=== PATIENT | female | born 1950 | race Caucasian/White ===

== ENCOUNTER → 2017-11-03 | Day surgery (SDC) | payer MEDICARE, OTHER ==
[2017-11-01 10:09] VITALS: BMI 22.6
[~2017-11-03] MED LIST: BALANCED SALT IRRIG SOLN COMB2 15 ML IRRIG.SOLN IRRIGATION ONE; DUOVISC KIT (GREEN BOX) INTRAOCULA ONE; EPINEPHrine (PF) 0.3 ML in BALANCED SALT IRRIG SOLN COMB2 500 ML IRRIGATION ONE; LACTATED RINGERS 1,000 ML IV SCH; LIDOCAINE 1% (PF) 10MG/ML VIAL MISCELLANE ONE; MIDAZOLAM 2 MG/2 ML VIAL IV PRN; MIDAZOLAM 2 MG/2 ML VIAL ONE; TETRACAINE 0.5% OPHTH (PF) DROPS 4 ML BTL OP ONE; fentaNYL (PF) 50 MCG/ML 2 ML AMP ONE
[2017-11-03 10:28] VITALS: RESP 16; TEMP 97.7
[2017-11-03] MEDS: CYCLOPENTOLATE 1% OPHTH SOLN 2 ML BTL OP ONE ×3 (10:31→10:43)
[2017-11-03] MEDS: PHENYLEPHRINE 2.5% OPHTH DRP 2ML OP NR ×3 (10:34→10:46)
[2017-11-03] MEDS: TIMOLOL 0.5% OPHTH DROPS 5 ML BTL OP ONE ×2 (10:55→11:06)
[2017-11-03] MEDS: MOXIFLOXACIN HCL 0.5% DROPS 3 ML BTL OP ONE ×2 (10:56→11:06)
--- NOTE | 2017-11-03 11:22 | P.OP ---
Date of Procedure: 11/03/17 Preoperative Diagnosis: NS & CS & PSC Postoperative Diagnosis: same Procedure(s) Performed: PIOL OD Implants: PCB00 20.00 Anesthesia: MAC Surgeon: Chano Carvalho Estimated Blood Loss (ml): 0 Pathology: none sent Condition: stable Disposition: same day Indications for Procedure: blurry vision Operative Findings: No complications
[2017-11-03 11:27] VITALS: BP 144/79; PULSE 60
--- NOTE | 2017-11-03 12:46 | OP ---
OPERATIVE REPORT DATE OF SURGERY: 11/03/2017. SURGEON: Chano Carvalho MD PAPER GRADER: PREOPERATIVE DIAGNOSIS: Nuclear sclerosis, cortical sclerosis, posterior subcapsular cataract. POSTOPERATIVE DIAGNOSIS: Nuclear sclerosis, cortical sclerosis, posterior subcapsular cataract. OPERATION: Phacoemulsification of cataract and intraocular lens implant of the right eye. ESTIMATED BLOOD LOSS: Zero. SPECIMEN TAKEN: None. NARRATIVE: After obtaining the appropriate consent, the patient was brought to the operating room where the patient was placed under cardiac monitoring and prepped and draped in the usual sterile manner. At the 11 o'clock position a 15 degree super sharp blade was used to create a paracentesis followed by instillation of 1% Xylocaine MPF 50:50 mix with BSS into the anterior chamber. This was followed by viscoelastic Duovisc to stabilize the anterior chamber. At the 9 o'clock position a self-sealing corneal flap incision was created using 2.8 mm jose manuel keratome. A cystotome was used to initiate a continuous tear capsulorrhexis which was completed with the Utrata forceps. A Binkhorst cannula was used to hydrodissect the lens nucleus followed by hydrodelineation. Phacoemulsification of the lens was performed utilizing phaco chop in 22.24 seconds at 13% power. The remaining cortical material was removed using the irrigation aspiration mode followed by additional 1% Xylocaine MPF into the anterior chamber followed by viscoelastic to stabilize the capsular bag. An EVELYNE PCB00 20.0 diopters posterior chamber lens was placed into the capsular bag without difficulty. The remaining viscoelastic material was removed from the anterior chamber with the irrigation/aspiration. Balanced salt solution was used to normalize the intraocular pressure. The incision was checked for watertight integrity. The patient then received two drops of 0.5% timolol followed by two drops Vigamox, was lightly patched and shielded in the usual manner. There were no complications from the procedure. The patient tolerated the procedure well and was returned to recovery in good condition. MMODL / IJN: [id number] /
== END | disposition home or self-care (01) ==
LOC: OR 08:58
PROVIDERS: ATTEND Ophthalmology
DX: H25.13 Age-related nuclear cataract, bilateral (principal); H25.013 Cortical age-related cataract, bilateral; H25.043 Posterior subcapsular polar age-related cataract, bilateral; H52.13 Myopia, bilateral; H52.4 Presbyopia; I10 Essential (primary) hypertension; E78.00 Pure hypercholesterolemia, unspecified; F17.210 Nicotine dependence, cigarettes, uncomplicated; E78.5 Hyperlipidemia, unspecified; Z79.899 Other long term (current) drug therapy; Z91.041 Radiographic dye allergy status; Z88.8 Allergy status to other drugs, medicaments and biological substances
CPT/HCPCS: 66984; C1780; J2250; J0171; J3010; J2001

== ENCOUNTER → 2018-04-27 | Day surgery (SDC) | payer MEDICARE, OTHER ==
[2018-04-20 10:55] VITALS: BMI 22.4
[~2018-04-27] MED LIST changes: -DUOVISC KIT (GREEN BOX) INTRAOCULA ONE; +HYALURONATE SODIUM INTRAOCULAR 1 EACH SYRINGE (12MG/ML) INTRAOCULA ONE; +HYDROmorphone 1 MG/ML 1 ML SYRINGE IVP PRN; -LIDOCAINE 1% (PF) 10MG/ML VIAL MISCELLANE ONE; +LIDOCAINE 1% (PF) 10MG/ML VIAL SQ ONE; +LIDOCAINE 1% 20 ML VIAL (10MG/ML) FOR IV START INTRADERMA ONE; -MIDAZOLAM 2 MG/2 ML VIAL IV PRN; +MOXIFLOXACIN HCL 0.5% DROPS 3 ML BTL OP ONE; +TIMOLOL 0.5% OPHTH DROPS 5 ML BTL OP ONE
[2018-04-27] MEDS: CYCLOPENTOLATE 1% OPHTH SOLN 2 ML BTL OP ONE ×3 (07:15→07:30)
[2018-04-27] MEDS: PHENYLEPHRINE 2.5% OPHTH DRP 2ML OP NR ×3 (07:18→07:33)
[2018-04-27 07:21] VITALS: TEMP 98.1
--- NOTE | 2018-04-27 08:43 | P.OP ---
Date of Procedure: 04/27/18 Preoperative Diagnosis: NS & CS Postoperative Diagnosis: same Procedure(s) Performed: PIOL, OS Implants: PCB00 20.50 Anesthesia: MAC Surgeon: Chano Carvalho Pathology: none sent Condition: stable Disposition: same day Indications for Procedure: blurry vision Operative Findings: no complications
[2018-04-27 08:51] VITALS: RESP 20
[2018-04-27 09:11] VITALS: BP 151/72; PULSE 54
--- NOTE | 2018-04-27 16:08 | OP ---
OPERATIVE REPORT DATE OF SERVICE: 04/27/2018 MERCHANDISE FOR RESALE PURCHASING AGENT:: PREOPERATIVE DIAGNOSIS:: Nuclear sclerosis. Cortical sclerosis. POSTOPERATIVE DIAGNOSIS:: Nuclear sclerosis. Cortical sclerosis. OPERATION:: Clear cornea phacoemulsification of cataract left OS eye. ESTIMATED BLOOD LOSS:: Zero. SPECIMEN TAKEN:: None. NARRATIVE:: After obtaining the appropriate consent, the patient was brought to the Operating Room where the patient was placed under cardiac monitoring and prepped and draped in the usual sterile manner. At the 5 o'clock position a 15 degree super sharp blade was used to create a paracentesis followed by instillation of 1% Xylocaine MPF 50:50 mix with BSS into the anterior chamber. This was followed by Amvisc to stabilize the anterior chamber. At the 3 o'clock OS position a self-sealing corneal flap incision was created using 2.8 mm jose manuel keratome. A cystatome was used to initiate a continuous tear capsulorrhexis which was completed with the Utrata forceps. A Binkhorst cannula was used to hydrodissect the lens nucleus followed by hydrodelineation. Phacoemulsification of the lens was performed utilizing phacochop in 19.28 seconds at 12% power. The remaining cortical material was removed using the irrigation aspiration mode followed by additional 1% Xylocaine MPF into the anterior chamber followed by viscoelastic to stabilize the capsular bag. An EVELYNE PZB 00 20.5 diopter posterior chamber lens was placed into the capsular bag without difficulty. The remaining viscoelastic material was removed from the anterior chamber with the irrigation/aspiration. Balanced salt solution was used to normalize the intraocular pressure. The incision was checked for watertight integrity. The patient then received two drops of 0.5% timolol followed by two drops Vigamox, was lightly patched and shielded in the usual manner. There were no complications from the procedure. The patient tolerated the procedure well and was returned to recovery in good condition. MMODL / IJN: [id number] /
== END | disposition home or self-care (01) ==
LOC: OR 07:01
PROVIDERS: ATTEND Ophthalmology
DX: H25.12 Age-related nuclear cataract, left eye (principal); I10 Essential (primary) hypertension; F17.210 Nicotine dependence, cigarettes, uncomplicated; H25.012 Cortical age-related cataract, left eye; H25.042 Posterior subcapsular polar age-related cataract, left eye; H52.13 Myopia, bilateral; H52.4 Presbyopia; E78.00 Pure hypercholesterolemia, unspecified; E78.5 Hyperlipidemia, unspecified; Z98.41 Cataract extraction status, right eye; Z96.1 Presence of intraocular lens; Z79.899 Other long term (current) drug therapy; F41.9 Anxiety disorder, unspecified; J44.9 Chronic obstructive pulmonary disease, unspecified
CPT/HCPCS: 66984; C1780; J2250; J0171; J3010; J2001

== ENCOUNTER → 2021-01-10 | Outpatient (CLI) | payer MEDICARE, OTHER ==
--- NOTE | 2021-01-14 10:36 | PE ---
Nuclear medicine PET/CT HISTORY: R 91.1, right lung nodule, initial Patient received 10.4 mCi F-18 FDG intravenously, delayed scanning was performed from the skull base to the mid thighs. Localization and attenuation correction CT scan was performed., Correlation [facility] 12/06/2020 Chest and neck: the right upper lobe lung nodule seen on prior CT is again noted and measures approxi mately 2.9 cm in size and shows associated hypermetabolic uptake, SUV 8.1. Spiculations extend to the pleural margin. Additional nodule in the right middle lobe is again seen but does not show associate d uptake. Subpleural inflammatory changes suspected in the left upper lobe, axial image #70, SUV is o nly 1.4. There is no pleural or pericardial effusion. Evidence of old granulomatous disease again see n, calcified nodule in the left upper lobe. There is no mediastinal uptake, retrocaval pretracheal no de is enlarged, there is prevascular node as present on prior. There are coronary artery calcificatio ns. Hiatal hernia is present. There is no cervical or supraclavicular adenopathy. Cerebral vascular a ccident change suspected in the distribution of the right middle cerebral artery, there are coils pre sent at the region of the [place] noted incidentally. ABDOMEN: There is no adrenal mass. The spleen shows associated calcifications consistent with old gra nulomatous disease. There is no retroperitoneal adenopathy or ascites. No liver mass. No suspicious u ptake. Right ovarian cyst is suspected measuring 2.7 cm, uterus is absent. Osseous structures show degenerative disc change in the lumbar spine. There are facet arthropathy rogelio nges in the lower lumbar spine with some associated uptake. No suspicious uptake is evident. Uptake a ssociated with some posterior right-sided rib fractures significant for pseudarthrosis. IMPRESSION: Enlarging right upper lobe lung mass, findings suggestive bronchogenic carcinoma. Old gra nulomatous disease.
== END | disposition home or self-care (01) ==
LOC: RADPETMAIN 12:20
PROVIDERS: ATTEND Internal Medicine
DX: R91.8 Other nonspecific abnormal finding of lung field (principal)
CPT/HCPCS: 78815; A9552

== ENCOUNTER 2021-02-12 10:24 | Day surgery (SDC) | payer MEDICARE, OTHER ==
[2021-02-10 11:31] VITALS: BMI 20.1
[~2021-02-12 10:24] MED LIST changes: +ALBUTEROL NEB (CONC) 2.5 MG/0.5 ML INHALATION ONE; -BALANCED SALT IRRIG SOLN COMB2 15 ML IRRIG.SOLN IRRIGATION ONE; -EPINEPHrine (PF) 0.3 ML in BALANCED SALT IRRIG SOLN COMB2 500 ML IRRIGATION ONE; -HYALURONATE SODIUM INTRAOCULAR 1 EACH SYRINGE (12MG/ML) INTRAOCULA ONE; -HYDROmorphone 1 MG/ML 1 ML SYRINGE IVP PRN; -LACTATED RINGERS 1,000 ML IV SCH; +LIDOCAINE 1% (10MG/ML) FOR IV START INTRADERMA PRN; -LIDOCAINE 1% (PF) 10MG/ML VIAL SQ ONE; -LIDOCAINE 1% 20 ML VIAL (10MG/ML) FOR IV START INTRADERMA ONE; +LIDOCAINE 2% (PF) 20 MG/ML 5 ML VIAL INHALATION ONE; -MIDAZOLAM 2 MG/2 ML VIAL ONE; -MOXIFLOXACIN HCL 0.5% DROPS 3 ML BTL OP ONE; +SODIUM CHLORIDE 0.9% 1,000 ML IV SCH; -TETRACAINE 0.5% OPHTH (PF) DROPS 4 ML BTL OP ONE; -TIMOLOL 0.5% OPHTH DROPS 5 ML BTL OP ONE; -fentaNYL (PF) 50 MCG/ML 2 ML AMP ONE
[2021-02-12] MEDS: LACTATED RINGERS 1,000 ML IV SCH ×2 (10:58→11:10)
[2021-02-12] MEDS: LIDOCAINE VISCOUS 300 MG/15 ML CUP MUCOUS MEM ONE ×2 (11:13→11:26)
--- NOTE | 2021-02-12 12:00 | CT ---
EXAMINATION TYPE: CT Chest soniya [facility] Protocol DATE OF EXAM: 02/12/2021 COMPARISON: Outside chest CT December 06, 2010. PET CT January 10, 2011. HISTORY: Pulmonary Nodules/Bronchial Navigation. Abnormal CT and PET/CT. CT DLP: 525.1 mGycm Automated exposure control for dose reduction was used. FINDINGS: Exam is for bronchoscopy planning and not for diagnostic purposes. Moderate emphysematous changes gre atest in the upper lungs is redemonstrated. There is persistent 2.0 cm spiculated nodule correspondin g to the hypermetabolic lesion on recent PET/CT in the posterior inferior right upper lobe. Benign ca lcified subcentimeter nodules are granulomas are seen just superior and medial to this. Persistent mo derate three-vessel coronary artery calcification. Persistent exaggerated kyphosis with moderate mult ilevel spurring in the spine and a shaped scoliotic curvature. IMPRESSION: As above.
[2021-02-12] MEDS ORDERED: SUCCINYLCHOLINE CHLORIDE 100 MG/5 ML SYR IV ONE (12:52)
[2021-02-12] MEDS ORDERED: PROPOFOL 10 MG/ML 20 ML VIAL IV ONE (12:52)
[2021-02-12] MEDS ORDERED: MIDAZOLAM 2 MG/2 ML VIAL ONE (12:52)
[2021-02-12] MEDS ORDERED: LIDOCAINE 1% INJ 10MG/ML (20 ML MDV) ONE (12:52)
[2021-02-12] MEDS ORDERED: fentaNYL (PF) 50 MCG/ML 2 ML AMP ONE (12:52)
[2021-02-12 13:52] VITALS: TEMP 97
--- NOTE | 2021-02-12 13:52 | P.PCN ---
Date of Procedure: 02/12/21 Preoperative Diagnosis: RLL mass, paratracheal adenopathy Postoperative Diagnosis: RLL mass, paratracheal adenopathy Procedure(s) Performed: 1 Navigation bronchoscopy 2 Navigationall guided TBBX of RUL mass 3 Navigationall guided Brushing of RUL mass 4 Navigationall guided TBNA of RUL mass (22 gauge) 5 Navigationall guided TBNA of paratracheal LN (21 gauge) Anesthesia: GETA Surgeon: Nicole Hoskins Supervising Chef #1: Nay Lopez Pathology: other Condition: stable Disposition: same day Operative Findings: 70-year-old male patient with a right upper lobe mass, enlarging, spiculated, measuring 2.9 cm in size in addition to some mediastinal lymphadenopathy largest in the paratracheal area measuring around 1 cm in size. PET scan was done on 01/10/2021 showed metabolic activity with an update an SUV of 8.1. Patient was brought into the hospital for a navigational bronchoscopy and biopsy. The patient underwent a CAT scan of the chest for planning and mapping purposes. The appropriate VPADS were applied to the patient's chest. The CAT scan images without protruded into the system. The right upper lobe mass was identified and was mapped appropriately. The paratracheal lymph node was also mapped. All of this information was uploaded into the [employer] navigational system. The patient was intubated by SIDE GLUER. After achieving adequate anesthesia, the flexible bronchoscope was introduced with orotracheal tube and was advanced in the lower trachea. An airway inspection was done. The procedure was done while the patient was adequately oxygenated and mechanically ventilated. The airway inspection included the distal trachea, madhavi, bilateral mainstem bronchi, right upper lobe bronchus, bronchus intermedius, right middle lobe bronchus and right lower lobe bronchus and left upper lobe bronchus and left lower bronchus along with the various segments on the right and left lung. All of these it was patent and within normal limits. Following that, appropriate condition was done using main madhavi and secondary madhavi on the left as at this point. Using na vigational guidance, the bronchoscope was directed to the posterior segment of the right upper lobe and under navigational guidance, transbuccal biopsy of the right upper lobe mass was done with excellent accuracy. Multiple biopsies of the right upper lobe mass was done. Transbronchial brushings and transbronchial needle aspirate of the right upper lobe mass was also done using a 22-gauge needle. No bleeding was encountered. Following that, using navigational guidance, transbronchial needle aspirate of the paratracheal lymph node was done usomg a 21 gauge needle with great accuracy. A total of 2 passes of this lymph node was taken. The procedure was completed without any complications. Bronchoscope was removed. The patient was extubated and the patient was transferred recovery in stable condition. Check CXR to rule out any complications post procedure.
--- NOTE | 2021-02-12 14:23 | XR ---
EXAMINATION TYPE: XR chest 1V DATE OF EXAM: 02/12/2021 COMPARISON: 02/12/2021 HISTORY: Post bronchoscopy TECHNIQUE: Single frontal view of the chest is obtained. FINDINGS: Changes of COPD are noted. There is a 2 cm spiculated nodule right upper lobe. Nodular den sity measuring 5 mm left upper lobe. No pleural effusion or sizable pneumothorax. Heart size normal. Atherosclerotic change aorta. Diffuse osteopenia. IMPRESSION: 1. No pneumothorax. 2. Spiculated nodule right upper lobe. 3. 5 mm left upper lobe pulmonary nodule
[2021-02-12 14:36] VITALS: RESP 18
[2021-02-12 15:08] VITALS: BP 121/68; PULSE 55
== END 2021-02-12 15:06 | disposition home or self-care (01) ==
LOC: ORWHC2ENDO 10:24
PROVIDERS: ATTEND Internal Medicine Critical Care Medicine
DX: C34.11 Malignant neoplasm of upper lobe, right bronchus or lung (principal); R59.0 Localized enlarged lymph nodes; I10 Essential (primary) hypertension; F17.200 Nicotine dependence, unspecified, uncomplicated; Z98.890 Other specified postprocedural states; Z79.82 Long term (current) use of aspirin; Z79.3 Long term (current) use of hormonal contraceptives; Z79.899 Other long term (current) drug therapy
CPT/HCPCS: 88104; 88305; 88173; 88342; 88341; 71045; 71250; 31629; 31625; 31623; 31627; J2250; J2001; J3010; J0330; J2704

== ENCOUNTER → 2021-03-17 | Outpatient (CLI) | payer MEDICARE, OTHER | END | disposition home or self-care (01) | LOC: LABPAT 11:00 | PROVIDERS: ATTEND Thoracic Surgery (Cardiothoracic Vascular Surgery) | DX: Z01.812 Encounter for preprocedural laboratory examination (principal) | CPT/HCPCS: 36415; 85730; 87077; 87086; 87186 ==

== ENCOUNTER 2021-03-20 06:13 | Inpatient (IN) | payer MEDICARE, OTHER ==
[2021-03-19 09:20] VITALS: BMI 20.5
[2021-03-20] MEDS ORDERED: MIDAZOLAM 2 MG/2 ML VIAL IV PRN (06:15)
[2021-03-20] MEDS ORDERED: LACTATED RINGERS 1,000 ML IV SCH (06:15)
[2021-03-20] MEDS ORDERED: DEXAMETHASONE SOD PHOSPHATE 4 MG/ML 1 ML VIAL IV ONE (06:15)
[2021-03-20] MEDS ORDERED: ONDANSETRON 4 MG/2 ML VIAL IVP ONE ×3 (06:15→12:22)
[2021-03-20] MEDS ORDERED: HYDROmorphone 0.5 MG/0.5 ML SYRINGE IVP PRN (06:15)
[2021-03-20] MEDS ORDERED: DEXAMETHASONE SOD PHOSPHATE 4 MG/ML 1 ML VIAL IVP ONE (06:40)
[2021-03-20] MEDS ORDERED: LIDOCAINE 1% INJ 10MG/ML (20 ML MDV) ONE ×2 (06:47→07:40)
[2021-03-20] MEDS ORDERED: MIDAZOLAM 2 MG/2 ML VIAL IVP ONE (07:01)
[2021-03-20] MEDS ORDERED: ROPIVACAINE 5 MG/ML 30 ML VIAL ONE (07:40)
[2021-03-20] MEDS ORDERED: ROCURONIUM 10 MG/ML (5 ML VIAL) IV ONE (07:40)
[2021-03-20] MEDS ORDERED: PROPOFOL 10 MG/ML 20 ML VIAL IV ONE (07:40)
[2021-03-20] MEDS ORDERED: NEOSTIGMINE 1 MG/ML 10 ML VIAL ONE (07:40)
[2021-03-20] MEDS ORDERED: PHENYLEPHRINE-0.9% NACL SYG 1,000 MCG/10 ML SYRINGE ONE (07:40)
[2021-03-20] MEDS ORDERED: fentaNYL (PF) 50 MCG/ML 2 ML AMP ONE (07:40)
[2021-03-20] MEDS ORDERED: GLYCOPYRROLATE 0.2 MG/ML 2 ML VIAL ONE (07:40)
[2021-03-20] MEDS ORDERED: SUCCINYLCHOLINE CHLORIDE 100 MG/5 ML SYR IV ONE (07:40)
[2021-03-20] MEDS ORDERED: LIDOCAINE 1%-EPI 1:100,000 20 ML VIAL ONE (07:40)
[2021-03-20] MEDS ORDERED: BUPIVACAINE (PF) 0.5% 30 ML VIAL SQ ONE ×2 (08:26)
[2021-03-20] MEDS ORDERED: LACTATED RINGERS 1,000 ML IV ONE (10:42)
--- NOTE | 2021-03-20 10:53 | P.OP ---
Date of Procedure: 03/20/21 Preoperative Diagnosis: Stage I adenocarcinoma right upper lobe Postoperative Diagnosis: Same Procedure(s) Performed: Robotic-assisted thoracoscopic right upper lobectomy with mediastinal lymph node dissection Anesthesia: ANGY Surgeon: Karl Mendez Estimated Blood Loss (ml): 20 IV fluids (ml): 1,000 Urine output (ml): 250 Pathology: other (Right upper lobe, lives node stations R4, R8, R 10, R 11, level 7)
--- NOTE | 2021-03-20 11:06 | P.OP ---
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 She underwent diagnostic bronchoscopy with JUNAID. Lymph nodes were negative and the tumor was positive for non-small cell carcinoma consistent with adenocarcinoma. PET scan demonstrated no evidence of metastasis with positive uptake in the primary tumor. Patient had adequate pulmonary function to undergo lobectomy. Elective lobectomy was scheduled for fear of cancer. Operative Findings: Pressures were near-complete. There was extensive anthracotic lymphadenopathy. Frozen section of bronchial margin was negative for tumor. Description of Procedure: Patient was brought to the operating room and placed supine on the operating table. Gen. anesthesia was induced. Double-lumen endotracheal tube was placed and positioned with fiberoptic bronchoscopy. No endobronchial lesions were note d. Patient was turned in left lateral decubitus position and appropriately positioned for robotic lobectomy. The right chest was sterilely prepped and draped. Initial incision was made in the eighth interspace in the mid axillary line and 8-[place] robotic port was placed here. Thoracoscope demonstrated successful placement in the pleural space. CO2 insufflation was begun. 15 mm ports were placed anterior and posterior to this in the seventh and ninth interspaces respectively. A second 8 mm port was placed posteriorly in the seventh interspace. Working port was placed anteriorly in the ninth interspace. The robot was docked. Dissection was begun in the hilum of the pulmonary artery was evident at the base of the fissure. Next we took down the inferior pulmonary ligament and dissected posteriorly dissecting out the level VIII and level VII lymph nodes. Dissection was carried up onto the bronchus and the madhavi between the upper lobe and bronchus intermedius was dissected out. Right upper lobe posterior segmental pulmonary artery was encircled and ligated and divided with a robotic vascular stapler. R 11 lymph node in the region of the takeoff of the right upper lobe bronchus was resected. Right upper lobe bronchus was encircled and ligated and divided with a robotic green stapler. Dissection was now carried anteriorly. The branches of the pulmonary vein draining the upper lobe were identified encircled and ligated and divided with a robotic vascular stapler. Dissection was carried onto the pulmonary artery. 2 branches leading to the upper lobe were identified and ligated and divided with robotic stapler. The R 10 lymph nodes were resected. We now completed the fissures with multiple firings of Endo TRAVIS stapler. Lobectomy specimen was placed in an Endo Catch bag. The R4 lymph nodes were dissected. The robot was now undocked and the working port incision enlarged. The lobectomy specimen had been placed in an Endo Catch bag was brought out onto the field after enlarging the working port incision. It was sent for frozen section and returned negative and the bronchial margin. Chest was irrigated with warm water and the lung inflated and no air leak was noted. 28-[place] chest tube was placed through separate stab small anterior stab incision and positioned posterior apically. Secured with 0 Ethibond suture. Rib blocks were performed at the level of the incision with half percent Marcaine. Incisions were closed with layers of Vicryl suture. Patient was turned supine and extubated and transferred to recovery in stable condition.
[2021-03-20] MEDS ORDERED: bisacodyL 10 MG SUPP RECTAL PRN (11:32)
[2021-03-20] MEDS ORDERED: METOCLOPRAMIDE 5 MG/ML 2 ML VIAL IVP PRN (11:32)
[2021-03-20] MEDS ORDERED: ONDANSETRON 4 MG/2 ML VIAL IVP PRN (11:32)
[2021-03-20] MEDS ORDERED: IPRATROPIUM-ALBUTEROL 3 ML NEB IH PRN (11:32)
[2021-03-20] MEDS ORDERED: HYDROmorphone 0.5 MG/0.5 ML SYRINGE IVP ONE ×2 (11:34→11:45)
--- NOTE | 2021-03-20 11:59 | XR ---
EXAMINATION TYPE: XR chest 1V portable DATE OF EXAM: 03/20/2021 COMPARISON: 02/12/2021 HISTORY: Post right upper lobectomy TECHNIQUE: Single frontal view of the chest is obtained. FINDINGS: Right-sided chest tube seen with no sizable pneumothorax. Heart size normal. Calcified gra nuloma left upper lobe. Arthropathy of the shoulders. No overt failure. Degenerative changes of the s pine. IMPRESSION: 1. Postsurgical change with no sizable pneumothorax. IMPRESSION: No acute process.
[2021-03-20] MEDS ORDERED: MEPERIDINE 50 MG/ML SYRINGE IVP ONE (12:25)
[2021-03-20] MEDS: IPRATROPIUM-ALBUTEROL 3 ML NEB IH SCH ×3 (12:28→18:56)
[2021-03-20] MEDS: DEXTROSE 5%-0.45% NACL 1,000 ML IV SCH ×2 (13:39→23:54)
[2021-03-20] MEDS: ACETAMINOPHEN IV (For NPO) 1,000 MG in EMPTY BAG 1 BAG IVPB SCH ×4 (13:40→17:03)
[2021-03-20] MEDS: GABAPENTIN 100 MG CAP PO SCH ×3 (13:59→20:28)
[2021-03-20 14:45] LABS: Basophils % (A) 0 %; Eosinophils % (A) 0 %; HCT 43.4 % (34.0-46.0); HGB 14.5 gm/dL (11.4-16.0); Lymphocytes # (A) 0.6 k/uL (1.0-4.8); Lymphocytes % (A) 3 %; MCH 31.5 pg (25.0-35.0); MCHC 33.4 g/dL (31.0-37.0); MCV 94.2 fL (80.0-100.0); Monocytes # (A) 0.4 k/uL (0-1.0); Monocytes % (A) 2 %; Neutrophils # (A) 15.8 k/uL (1.3-7.7); Neutrophils % (A) 94 %; Platelet Count 359 k/uL (150-450); RDW 13.9 % (11.5-15.5); WBC 16.8 k/uL (3.8-10.6)
[2021-03-20 14:54] LABS: African American GFR (CKD) >90 (>60 ml/min/1.73 sqM); Anion Gap 6 mmol/L; Blood Urea Nitrogen 7 mg/dL (7-17); Calcium 9.2 mg/dL (8.4-10.2); Carbon Dioxide 25 mmol/L (22-30); Chloride 103 mmol/L (98-107); Glucose 145 mg/dL (74-99); Non-African American GFR(CKD) >90 (>60 ml/min/1.73 sqM); Potassium 4.5 mmol/L (3.5-5.1); Sodium 134 mmol/L (137-145)
--- NOTE | 2021-03-20 15:51 | P.CNPUL ---
History of Present Illness Consult date: 03/20/21 Requesting physician: Karl Mendez Reason for consult: lung mass, abnormal CXR/CT, other Chief complaint: Status post lobectomy. History of present illness: Pulmonary consult dated 03/20/2021. 70-year-old female who underwent a robotically-assisted right upper lobectomy with mediastinal lymph node dissection for early stage adenocarcinoma of the right upper lobe. The surgery was done by Dr. Mendez. The patient was sent by Dr. Porter. Electromagnetic navigational bronchoscopy was performed by my partner, in January. Currently, the patient's resting comfortably. Room air saturation is 96%. On 3 L she is 99%. Her only complaint today was the compression stockings that she is wearing. I explained to her that they help prevent deep venous thrombosis. She does understand. She denies any significant pain at this time. She also denies any shortness of breath, cough, wheezing, or phlegm production. She has a history of hyperlipidemia, and hypertension. She also has a history of mood disorder, and osteoporosis. Up until recently, she was a active smoker. Labs include a white count of 16.8 hemoglobin 14.5, hematocrit 43.4, and platelet count 359,000. Sodium 134. Potassium 4.5, chlorides 103, CO2 25, anion gap 6, BUN 7, creatinine 0.68. Coronavirus testing was negative. Chest x-ray shows postsurgical changes within the right chest, right-sided chest tube, and no pneumothorax. Review of Systems REVIEW OF SYSTEMS: CONSTITUTIONAL: Mild pain at surgical site. NEUROLOGIC: [ Negative.] HEENT: [ Negative.] CARDIAC: [Negative.] PULMONARY: [Negative.] GI: [Negative.] : [Negative.] RHEUMATOLOGIC: [ Negative.] IMMUNOLOGIC: [ Negative.] ENDOCRINE: [Negative. ] DERMATOLOGIC: [Negative.] Past Medical History Past Medical History: Hyperlipidemia, Hypertension Additional Past Medical History / Comment(s): lung CA Dx , hx 1998 brain aneurysm History of Any Multi-Drug Resistant Organisms: None Reported Additional Past Surgical History / Comment(s): clip for brain anuerysm was in a coma and on life support for 1 month, colonoscopy,bronchoscopy Past Anesthesia/Blood Transfusion Reactions: No Reported Reaction Smoking Status: Current every day smoker - Past Family History Mother Family Medical History: Cancer Additional Family Medical History / Comment(s): lung Medications and Allergies Home Medications Medication Instructions Recorded Confirmed Type Gabapentin [Neurontin] 100 mg PO QID 01/23/21 03/19/21 History Lisinopril [Zestril] 10 mg PO QAM 01/23/21 03/19/21 History Naproxen Sodium [Aleve] 220 mg PO DAILY 01/23/21 03/19/21 History QUEtiapine FUMARATE 10 mg PO HS 01/23/21 03/19/21 History Rosuvastatin [Crestor] 10 mg PO DAILY 01/23/21 03/19/21 History Allergies Allergy/AdvReac Type Severity Reaction Status Date / Time No Known Allergies Allergy Verified 03/20/21 06:29 Physical Exam Osteopathic Statement: *. No significant issues noted on an osteopathic structural exam other than those noted in the History and Physical/Consult. Vitals: Vital Signs Temp Pulse Resp BP BP Pulse Ox 03/20/21 13:31 98 F 61 16 147/81 96 03/20/21 13:26 55 L 18 03/20/21 12:50 61 17 130/70 99 03/20/21 12:35 55 L 18 136/64 99 03/20/21 12:20 70 18 154/71 99 03/20/21 12:05 66 18 172/79 99 03/20/21 11:50 60 17 199/83 99 03/20/21 11:35 66 18 165/74 100 03/20/21 11:20 70 18 170/96 100 03/20/21 11:09 98 F 83 18 135/88 100 03/20/21 07:26 64 16 132/63 97 03/20/21 06:32 96.9 F L 95 16 126/66 92 L Intake and Output 03/20/21 03/20/21 03/20/21 06:59 14:59 22:59 Intake Total 200 1190 Output Total 370 Balance 200 820 Intake: IV 200 950 Oral 240 Output: Urine 350 Estimated Blood Loss 20 Other: Voiding Method Indwelling Catheter Weight 51.4 kg No acute distress, oriented 3. Currently on 2 L nasal cannula. Saturations are excellent. HEENT examination is grossly unremarkable. Neck supple. Full range of motion. No adenopathy thyromegaly or neck vein distention. Cardiovascular examination reveals regular rhythm rate. S1-S2 normal. No S3 or S4. No discernible murmur noted. Heart rate 61 bpm. Heart sounds are distant. Lungs reveal mostly clear breath sounds. A few scattered rhonchi. No wheezes or crackles. Breath sounds equal. Right sided chest tube noted.. Abdomen soft bowel sounds are heard. No masses or tenderness. Extremities are intact. No cyanosis clubbing or edema. Skin is without rash or lesion. Neurologic examination is brief but nonfocal. Results - Laboratory Findings CBC and BMP: 03/20/21 14:01 03/20/21 14:01 Abnormal lab findings: Abnormal Labs 03/20/21 03/20/21 14:01 14:01 WBC 16.8 H Neutrophils # 15.8 H Lymphocytes # 0.6 L Sodium 134 L Glucose 145 H - Diagnostic Findings Chest x-ray: image reviewed Assessment and Plan Assessment: Post-op day #0, status post robotically assisted right upper lobectomy and mediastinal lymph node dissection, for early stage adenocarcinoma of the lung. History of significant previous tobacco history. History of hyperlipidemia. History of hypertension. History of mood disorder. History of osteoporosis. Plan: Plan dated 03/20/2021. We will continue to follow this patient until discharge. We encourage deep breathing, coughing, and clearing of secretions as well as hourly use of the incentive spirometer. The patient appears to have tolerated the surgery well. We'll continue to follow. Prognosis is guarded. The patient will follow-up with her oncology technician post discharge. Time with Patient: Greater than 30
[2021-03-20] MEDS: traMADol 50 MG TAB PO SCH ×2 (15:56→20:27)
[2021-03-20] MEDS: HEPARIN SODIUM,PORCINE/PF 5,000 UNIT/0.5 ML SYRINGE SQ SCH ×2 (15:56→23:52)
[2021-03-20] MEDS: KETOROLAC 15 MG/ML 1 ML VIAL IVP SCH ×2 (17:01→23:55)
[2021-03-20] MEDS: QUEtiapine 25 MG TAB PO SCH (20:28)
[2021-03-21] MEDS: ACETAMINOPHEN TAB 500 MG TAB PO PRN ×3 (04:13→20:00)
[2021-03-21] MEDS: KETOROLAC 15 MG/ML 1 ML VIAL IVP SCH ×4 (05:58→23:49)
[2021-03-21 07:43] LABS: Basophils % (A) 0 %; Eosinophils % (A) 0 %; HCT 37.2 % (34.0-46.0); HGB 12.4 gm/dL (11.4-16.0); Lymphocytes # (A) 2.4 k/uL (1.0-4.8); Lymphocytes % (A) 31 %; MCH 31.2 pg (25.0-35.0); MCHC 33.2 g/dL (31.0-37.0); Mean Platelet Volume 6.8; Monocytes # (A) 0.4 k/uL (0-1.0); Monocytes % (A) 6 %; Neutrophils # (A) 4.8 k/uL (1.3-7.7); Neutrophils % (A) 61 %; Platelet Count 281 k/uL (150-450); RBC 3.96 m/uL (3.80-5.40); RDW 13.8 % (11.5-15.5); WBC 7.9 k/uL (3.8-10.6)
[2021-03-21] MEDS: IPRATROPIUM-ALBUTEROL 3 ML NEB IH SCH ×4 (07:56→19:01)
--- NOTE | 2021-03-21 08:38 | XR ---
EXAMINATION TYPE: XR chest 1V DATE OF EXAM: 03/21/2021 COMPARISON: Chest x-ray 03/20/2021 HISTORY: Postop right upper lobectomy, chest tube TECHNIQUE: Single frontal view of the chest is obtained. FINDINGS: Right-sided chest tube shows the distal tip of the apex of the right hemithorax as on prio r. There is no sizable pneumothorax. Patchy bilateral density is noted within the lungs. Cardiac medi astinal silhouette is not significantly changed, there is volume loss in the right hemithorax. Cardia c mediastinal silhouette shows a similar appearance. No evident effusion. Left upper lobe lung nodule is again noted. There is underlying emphysema. IMPRESSION: Findings are similar to prior exam. Satisfactory postoperative chest x-ray. There is lik marley some postoperative atelectasis.
[2021-03-21] MEDS ORDERED: LORazepam 2 MG/ML INJ IV PRN ×3 (08:41)
--- NOTE | 2021-03-21 08:55 | P.PN ---
Subjective Progress Note Date: 03/21/21 Principal diagnosis: Stage I adenocarcinoma right upper lobe. Previous medical history of hypertension, hyperlipidemia, brain aneurysm status post clipping, recent cessation of heavy tobacco dependence, daily marijuana use, daily EtOH use without history of withdrawal, and family history of cancer POD #1 robotic assisted thoracoscopic right upper lobectomy with mediastinal ly mph node dissection The patient was seen and examined this morning on the cardiac stepdown unit. S he is in no acute distress. States pain is controlled on current medication regimen, denies shortness of breath. She remains on room air and oxygenating well. Right pleural chest tube remains to continuous wall suction with minor air leak present with strong coughing only. Patient had an uneventful night. Chest x-ray reviewed this morning, stable. No other new concerns. Objective - Vital Signs Vital signs: Vital Signs Temp 98 F 03/21/21 07:35 Pulse 61 03/21/21 07:35 Resp 18 03/21/21 07:35 BP 111/65 03/21/21 07:35 Pulse Ox 99 03/21/21 07:35 Intake & Output 03/20/21 03/21/21 03/21/21 18:59 06:59 18:59 Intake Total 1590 1020 Output Total 660 470 Balance 930 550 Weight 52.5 kg Intake: IV 1350 Intake, IV Titration 50 Amount ceFAZolin 2 gm In Sodium 50 Chloride 0.9% 50 ml @ 100 mls/hr IVPB ONCE PRN Rx# :[id number] Oral 240 970 Output: Chest Tube Drainage 240 120 Chest Tube Right Lower 240 120 Anterior Chest Urine 400 350 Estimated Blood Loss 20 Other: Voiding Method Indwelling Catheter Indwelling Catheter Indwelling Catheter - Exam CONSTITUTIONAL: Appears comfortable, cooperative, no acute distress RESPIRATORY: Lungs sounds diminished bilaterally. Respirations even, nonlabored. Currently on room air with oxygen saturation 99%. Strong cough. CARDIOVASCULAR: S1, S2 present. Regular rate and rhythm, sinus rhythm on telemetry. Palpable peripheral pulses bilaterally. No edema present. No calf pain or tenderness noted. SCDs present. GASTROINTESTINAL: Abdomen soft, nontender, nondistended. Active bowel sounds present 4 quadrants. Tolerating diet. GENITOURINARY: Bernal discontinued this morning, due to void INTEGUMENTARY: Skin is warm and dry with evidence of good perfusion. Thoracic incisions well approximated and covered with dry bandages. NEUROLOGIC: Cranial nerves II through XII intact MUSKULOSKELETAL: Able to move all extremities, strength equal bilaterally, gait normal PSYCHIATRIC: Alert and oriented to person place and time, appropriate affect, intact judgment and insight INVASIVE LINES AND TUBES: Right pleural chest tube present and connected to wall suction, minimal air leak present with strong coughing, 120 mL serosanguineous drainage overnight, 450 mL since surgery. - Allied health notes Allied health notes reviewed: nursing - Labs CBC & Chem 7: 03/21/21 07:01 03/20/21 14:01 Labs: Abnormal Lab Results - Last 24 Hours (Table) 03/20/21 03/20/21 Range/Units 14:01 14:01 WBC 16.8 H (3.8-10.6) k/uL Neutrophils # 15.8 H (1.3-7.7) k/uL Lymphocytes # 0.6 L (1.0-4.8) k/uL Sodium 134 L (137-145) mmol/L Glucose 145 H (74-99) mg/dL - Imaging and Cardiology Chest x-ray: report reviewed, image reviewed Assessment and Plan Assessment: 1. Stage I adenocarcinoma right upper lobe, status post robotic-assisted thoracoscopic right upper lobectomy with mediastinal lymph node dissection, pathology pending 2. History of hypertension, treated 3. History of hyperlipidemia, treated 4. History of brain aneurysm status post clipping 5. Recent cessation of heavy tobacco dependence, previous 2 pack a day smoker for 40 years 6. Daily marijuana use 7. Daily EtOH use without history of withdrawal, 3-5 beers daily 8. Family history of cancer Plan: 1. Right pleural chest tube placed to waterseal. We will continue to monitor drainage and air leak. Pathology pending 2. Incentive spirometry ordered, should be encouraged 10 times every hour while awake. Bronchodilators per pulmonology 3. Increase activity, ambulate as tolerated 4. Encourage continued smoking cessation 5. Will monitor daily labs, chest x-rays 6. CIWA protocol 7. Home medications ordered 8. Pain control with current medication regimen 9. More recommendations to follow based on patient's progress Time with Patient: Greater than 30
[2021-03-21] MEDS: HEPARIN SODIUM,PORCINE/PF 5,000 UNIT/0.5 ML SYRINGE SQ SCH ×3 (09:08→23:49)
[2021-03-21] MEDS: traMADol 50 MG TAB PO SCH ×3 (09:09→21:15)
[2021-03-21] MEDS: THIAMINE 100 MG TAB PO SCH ×2 (09:09→16:37)
[2021-03-21] MEDS: ATORVASTATIN 40 MG TAB PO SCH (09:10)
[2021-03-21] MEDS: lisinopriL 10 MG TAB PO SCH (09:10)
[2021-03-21] MEDS: MULTIVITAMINS, THERA 1 EACH TAB PO SCH (09:10)
[2021-03-21] MEDS: GABAPENTIN 100 MG CAP PO SCH ×4 (09:10→21:16)
--- NOTE | 2021-03-21 11:56 | P.ANPRN ---
Procedure Note - Anesthesia - Nerve Block Performed Bilateral Erector Spinae Single Time Out Performed: Yes Date of Procedure: 03/21/21 Procedure Start Time: Procedure Stop Time: Location of Patient: PreOp Indication: Acute Post-Operative Pain, Requested by Surgeon Sedation Type: Sedate with meaningful contact maintained Preparation: Sterile Prep Position: Prone Needle Types: Pajunk Needle Gauge: 21 Ultrasound used to visualize needle placement: Yes Ultrasound used to observe medication spread: Yes Blood Aspirated: No Pain Paresthesia on Injection Noted: No Resistance on Injection: Normal Image Stored and Saved: Yes Events: Uneventful and Well Tolerated (Ropivacaine 0.5% 15 mL of Xylocaine 1% with epi 15 mL given bilaterally at T4)
--- NOTE | 2021-03-21 14:02 | P.PN ---
Subjective Progress Note Date: 03/21/21 Principal diagnosis: Lung mass, status post right upper lobectomy 70-year-old female who underwent a robotically-assisted right upper lobectomy with mediastinal lymph node dissection for early stage adenocarcinoma of the right upper lobe. The surgery was done by Dr. Mendez. The patient was sent by Dr. Porter. Electromagnetic navigational bronchoscopy was performed by my pa mahesh, in January. Currently, the patient's resting comfortably. Room air saturation is 96%. On 3 L she is 99%. Her only complaint today was the compression stockings that she is wearing. I explained to her that they help prevent deep venous thrombosis. She does understand. She denies any sign ificant pain at this time. She also denies any shortness of breath, cough, wheezing, or phlegm production. She has a history of hyperlipidemia, and hypertension. She also has a history of mood disorder, and osteoporosis. Up until recently, she was a active smoker. Labs include a white count of 16.8 hemoglobin 14.5, hematocrit 43.4, and platelet count 359,000. Sodium 134. Potassium 4.5, chlorides 103, CO2 25, anion gap 6, BUN 7, creatinine 0.68. Coronavirus testing was negative. Chest x-ray shows postsurgical changes within the right chest, right-sided chest tube, and no pneumothorax. The patient is seen today March 21 2021 in follow-up on the selective care unit. She is currently sitting up in bed. Awake and alert in no acute distress. She denies any worsening shortness of breath, cough or congestion. Her pain is well controlled. She is maintaining good O2 saturations in the upper 90s on room air. Chest tube remains in place. Currently to waterseal suction. Minimal air leak noted. His x-ray continues to reassess some postoperative atelectasis. No sizable pneumothorax. If she continues to work well with the incentive spirometer. Up with assistance. He comes in 0.9. Hemoglobin 12.4. She remains on bronchodilators. Heparin for DVT prophylaxis. [facility] protocol in place. Objective - Vital Signs Vital signs: Vital Signs Temp 98 F 03/21/21 07:35 Pulse 64 03/21/21 11:30 Resp 18 03/21/21 10:03 BP 119/61 03/21/21 10:03 Pulse Ox 98 03/21/21 10:03 Intake & Output 03/20/21 03/21/21 03/21/21 18:59 06:59 18:59 Intake Total 1590 1020 500 Output Total 660 470 Balance 930 550 500 Weight 52.5 kg Intake: IV 1350 Intake, IV Titration 50 Amount ceFAZolin 2 gm In Sodium 50 Chloride 0.9% 50 ml @ 100 mls/hr IVPB ONCE PRN Rx# :[id number] Oral 240 970 500 Output: Chest Tube Drainage 240 120 Chest Tube Right Lower 240 120 Anterior Chest Urine 400 350 Estimated Blood Loss 20 Other: Voiding Method Indwelling Catheter Indwelling Catheter Indwelling Catheter # Voids 3 - Exam GENERAL EXAM: Alert, active, pleasant 70-year-old female patient, on room air, comfortable in no apparent distress. HEAD: Normocephalic. EYES: Normal reaction of pupils, equal size. NOSE: Clear with pink turbinates. THROAT: No erythema or exudates. NECK: No masses, no JVD. CHEST: Right-sided chest tube in placed to waterseal, minor leak. No chest wall deformity. LUNGS: Equal air entry with basilar crackles. CVS: S1 and S2 normal with no audible murmur, regular rhythm. ABDOMEN: No hepatosplenomegaly, normal bowel sounds, no guarding or rigidity. SPINE: No scoliosis or deformity SKIN: No rashes CENTRAL NERVOUS SYSTEM: No focal deficits, tone is normal in all 4 extremities. EXTREMITIES: There is no peripheral edema. No clubbing, no cyanosis. Peripheral pulses are intact. - Labs CBC & Chem 7: 03/21/21 07:01 03/20/21 14:01 Labs: Abnormal Lab Results - Last 24 Hours (Table) 03/20/21 03/20/21 Range/Units 14:01 14:01 WBC 16.8 H (3.8-10.6) k/uL Neutrophils # 15.8 H (1.3-7.7) k/uL Lymphocytes # 0.6 L (1.0-4.8) k/uL Sodium 134 L (137-145) mmol/L Glucose 145 H (74-99) mg/dL Assessment and Plan Assessment: 1 Early stage adenocarcinoma of the lung. Status post robotically assisted right upper lobectomy and mediastinal lymph node dissection, Post-op day #1, 2 History of significant previous tobacco history. 3 History of hyperlipidemia. 4 History of hypertension. 5 History of mood disorder. 6 History of osteoporosis. Plan: The patient was seen and evaluated by Dr. Fletcher Chest x-ray and labs reviewed Chest tube remains in place to waterseal, minor leak Increase her activity as tolerated Follow-up chest x-ray in a.m. We will continue to follow make further recommendations based on her clinical status I, the cosigning physician, performed a history & physical examination of the patient. Lungs sounds with basilar crackles. Maintaining good O2 saturations in the 90s on room air. I discussed the assessment and plan of care with my nurse practitioner, Nay Lopez. I attest to the above note as dictated by her.
[2021-03-21] MEDS: QUEtiapine 25 MG TAB PO SCH (20:01)
[2021-03-22] MEDS: ACETAMINOPHEN TAB 500 MG TAB PO PRN ×2 (04:39→13:56)
[2021-03-22] MEDS: KETOROLAC 15 MG/ML 1 ML VIAL IVP SCH ×4 (05:47→23:40)
[2021-03-22] MEDS: THIAMINE 100 MG TAB PO SCH ×2 (05:48→17:46)
--- NOTE | 2021-03-22 07:01 | XR ---
EXAMINATION TYPE: XR chest 2V DATE OF EXAM: 03/22/2021 COMPARISON: 03/21/2021 HISTORY: Shortness of breath TECHNIQUE: Frontal and lateral views of the chest are obtained. FINDINGS: Scattered senescent parenchymal changes noted. Hyperinflation compatible with COPD. Partial right-sided lobectomy changes seen. Right perihilar opacity noted. Right-sided chest tube wit hout pneumothorax present. Heart size is stable. Mediastinal structures are stable and grossly unremarkable. No evidence for hilar prominence. Degenerative changes dorsal spine. IMPRESSION: 1. Partial right-sided lobectomy changes seen. Right perihilar opacity noted. Right-sided chest tube without pneumothorax present.
[2021-03-22] MEDS: IPRATROPIUM-ALBUTEROL 3 ML NEB IH SCH ×4 (08:12→20:08)
--- NOTE | 2021-03-22 08:38 | P.PN ---
Subjective Progress Note Date: 03/22/21 Principal diagnosis: Stage I adenocarcinoma right upper lobe. Previous medical history of hypertension, hyperlipidemia, brain aneurysm status post clipping, recent cessation of heavy tobacco dependence, daily marijuana use, daily EtOH use without history of withdrawal, and family history of cancer POD #2 robotic assisted thoracoscopic right upper lobectomy with mediastinal ly mph node dissection The patient was seen and examined this morning on the cardiac stepdown unit. S he is in no acute distress but is irritated by the constant waking her up for labs, x-rays, assessments. States pain is controlled on current medication regimen, denies shortness of breath. She remains on room air and oxygenating well. Right pleural chest tube remains to continuous wall suction with no air leak present this morning. Patient had an uneventful night. Chest x-ray reviewed this morning, stable. No other new concerns. Objective - Vital Signs Vital signs: Vital Signs Temp 98.2 F 03/21/21 20:00 Pulse 83 03/22/21 04:00 Resp 18 03/22/21 04:00 BP 174/83 03/22/21 04:00 Pulse Ox 92 L 03/22/21 04:00 Intake & Output 03/21/21 03/22/21 03/22/21 18:59 06:59 18:59 Intake Total 620 Output Total 160 Balance 460 Weight 53 kg Intake: Oral 620 Output: Chest Tube Drainage 160 Chest Tube Right Lower 160 Anterior Chest Other: Voiding Method Indwelling Catheter Indwelling Catheter # Voids 3 3 - Exam CONSTITUTIONAL: Appears comfortable, cooperative, no acute distress RESPIRATORY: Lungs sounds diminished bilaterally. Respirations even, nonlabored. Currently on room air with oxygen saturation 92%. Strong cough. Able to achieve 1000 mL on her incentive spirometry CARDIOVASCULAR: S1, S2 present. Regular rate and rhythm, sinus rhythm on telemetry. Palpable peripheral pulses bilaterally. No edema present. No calf pain or tenderness noted. SCDs present. GASTROINTESTINAL: Abdomen soft, nontender, nondistended. Active bowel sounds present 4 quadrants. Tolerating diet. GENITOURINARY: Continues to void INTEGUMENTARY: Skin is warm and dry with evidence of good perfusion. Thoracic incisions well approximated and covered with dry bandages. NEUROLOGIC: Cranial nerves II through XII intact MUSKULOSKELETAL: Able to move all extremities, strength equal bilaterally, gait normal PSYCHIATRIC: Alert and oriented to person place and time, appropriate affect, intact judgment and insight INVASIVE LINES AND TUBES: Right pleural chest tube present and connected to wall suction, no air leak present, 350 mL serosanguineous drainage in the last 24 hours. - Allied health notes Allied health notes reviewed: nursing - Labs CBC & Chem 7: 03/21/21 07:01 03/20/21 14:01 - Imaging and Cardiology Chest x-ray: report reviewed, image reviewed Assessment and Plan Assessment: 1. Stage I adenocarcinoma right upper lobe, status post robotic-assisted thoracoscopic right upper lobectomy with mediastinal lymph node dissection, pathology pending 2. History of hypertension, treated 3. History of hyperlipidemia, treated 4. History of brain aneurysm status post clipping 5. Recent cessation of heavy tobacco dependence, previous 2 pack a day smoker for 40 years 6. Daily marijuana use 7. Daily EtOH use without history of withdrawal, 3-5 beers daily 8. Family history of cancer Plan: 1. Continue right pleural chest tube placed to waterseal. Pathology pending 2. Encourage incentive spirometry 10 times every hour while awake. Bronchodilators per pulmonology 3. Increase activity, ambulate as tolerated 4. Encourage continued smoking cessation 5. Will monitor daily labs, chest x-rays 6. CIWA protocol 7. Pain control with current medication regimen 8. More recommendations to follow based on patient's progress Time with Patient: Greater than 30
[2021-03-22 09:00] LABS: HGB 12.4 gm/dL (11.4-16.0); MCH 32.2 pg (25.0-35.0); MCHC 34.5 g/dL (31.0-37.0); MCV 93.5 fL (80.0-100.0); Mean Platelet Volume 6.8; Platelet Count 298 k/uL (150-450); RBC 3.86 m/uL (3.80-5.40); RDW 13.9 % (11.5-15.5); WBC 9.3 k/uL (3.8-10.6)
[2021-03-22] MEDS: traMADol 50 MG TAB PO SCH ×3 (09:10→20:15)
[2021-03-22] MEDS: HEPARIN SODIUM,PORCINE/PF 5,000 UNIT/0.5 ML SYRINGE SQ SCH ×3 (09:10→23:40)
[2021-03-22] MEDS: GABAPENTIN 100 MG CAP PO SCH ×4 (09:11→20:15)
[2021-03-22] MEDS: ATORVASTATIN 40 MG TAB PO SCH (09:11)
[2021-03-22] MEDS: MULTIVITAMINS, THERA 1 EACH TAB PO SCH (09:11)
[2021-03-22] MEDS: lisinopriL 10 MG TAB PO SCH (09:11)
[2021-03-22 09:20] LABS: African American GFR (CKD) >90 (>60 ml/min/1.73 sqM); Anion Gap 6 mmol/L; Blood Urea Nitrogen 6 mg/dL (7-17); Calcium 8.8 mg/dL (8.4-10.2); Carbon Dioxide 23 mmol/L (22-30); Chloride 100 mmol/L (98-107); Glucose 82 mg/dL (74-99); Magnesium 1.8 mg/dL (1.6-2.3); Non-African American GFR(CKD) >90 (>60 ml/min/1.73 sqM); Sodium 129 mmol/L (137-145)
[2021-03-22] MEDS ORDERED: MAGNESIUM OXIDE 400 MG TAB PO STA (09:44)
--- NOTE | 2021-03-22 13:44 | P.PN ---
Subjective Progress Note Date: 03/22/21 Principal diagnosis: Lung mass, status post right upper lobectomy 70-year-old female who underwent a robotically-assisted right upper lobectomy with mediastinal lymph node dissection for early stage adenocarcinoma of the right upper lobe. The surgery was done by Dr. Mendez. The patient was sent by Dr. Porter. Electromagnetic navigational bronchoscopy was performed by my pa mahesh, in January. Currently, the patient's resting comfortably. Room air saturation is 96%. On 3 L she is 99%. Her only complaint today was the compression stockings that she is wearing. I explained to her that they help prevent deep venous thrombosis. She does understand. She denies any sign ificant pain at this time. She also denies any shortness of breath, cough, wheezing, or phlegm production. She has a history of hyperlipidemia, and hypertension. She also has a history of mood disorder, and osteoporosis. Up until recently, she was a active smoker. Labs include a white count of 16.8 hemoglobin 14.5, hematocrit 43.4, and platelet count 359,000. Sodium 134. Potassium 4.5, chlorides 103, CO2 25, anion gap 6, BUN 7, creatinine 0.68. Coronavirus testing was negative. Chest x-ray shows postsurgical changes within the right chest, right-sided chest tube, and no pneumothorax. The patient is seen today March 21 2021 in follow-up on the selective care unit. She is currently sitting up in bed. Awake and alert in no acute distress. She denies any worsening shortness of breath, cough or congestion. Her pain is well controlled. She is maintaining good O2 saturations in the upper 90s on room air. Chest tube remains in place. Currently to waterseal suction. Minimal air leak noted. His x-ray continues to reassess some postoperative atelectasis. No sizable pneumothorax. If she continues to work well with the incentive spirometer. Up with assistance. He comes in 0.9. Hemoglobin 12.4. She remains on bronchodilators. Heparin for DVT prophylaxis. CIWA protocol in place. The patient is seen today 03/22/2021 and follow-up on the selective care unit. She is currently sitting up in bed. Awake and alert in no acute distress. No worsening shortness of breath, cough or congestion. Maintaining good O2 saturations in the mid 90s on room air. She's afebrile. White count 9.3. Hemoglobin 12.4. Sodium 129. Potassium 4.0. Creatinine 0.64. On the CIWA protocol. No Ativan required. Pathology results pending. Chest x-ray reveals partial right-sided lobectomy changes seen. Right perihilar opacity noted. Right-sided chest tube in place without evidence of pneumothorax. Chest tube remains to continuous wall suction with no air leak noted. Objective - Vital Signs Vital signs: Vital Signs Temp 98.8 F 03/22/21 08:00 Pulse 76 03/22/21 12:00 Resp 18 03/22/21 12:00 BP 183/87 03/22/21 12:00 Pulse Ox 96 03/22/21 12:00 Intake & Output 03/21/21 03/22/21 03/22/21 18:59 06:59 18:59 Intake Total 620 0 Output Total 160 Balance 460 0 Weight 53 kg Intake: Oral 620 0 Output: Chest Tube Drainage 160 Chest Tube Right Lower 160 Anterior Chest Other: Voiding Method Indwelling Catheter Indwelling Catheter # Voids 3 3 2 - Exam GENERAL EXAM: Alert, active, pleasant 70-year-old female patient, on room air, comfortable in no apparent distress. HEAD: Normocephalic. EYES: Normal reaction of pupils, equal size. NOSE: Clear with pink turbinates. THROAT: No erythema or exudates. NECK: No masses, no JVD. CHEST: Right-sided chest tube in placed to wall suction, no air leak. LUNGS: Equal air entry with basilar crackles. CVS: S1 and S2 normal with no audible murmur, regular rhythm. ABDOMEN: No hepatosplenomegaly, normal bowel sounds, no guarding or rigidity. SPINE: No scoliosis or deformity SKIN: No rashes CENTRAL NERVOUS SYSTEM: No focal deficits, tone is normal in all 4 extremities. EXTREMITIES: There is no peripheral edema. No clubbing, no cyanosis. Peripheral pulses are intact. - Labs CBC & Chem 7: 03/22/21 08:01 03/22/21 08:01 Labs: Abnormal Lab Results - Last 24 Hours (Table) 03/22/21 Range/Units 08:01 Sodium 129 L (137-145) mmol/L BUN 6 L (7-17) mg/dL Assessment and Plan Assessment: 1 Early stage adenocarcinoma of the lung. Status post robotically assisted right upper lobectomy and mediastinal lymph node dissection, Post-op day #2 2 History of significant previous tobacco history. 3 History of hyperlipidemia. 4 History of hypertension. 5 History of mood disorder. 6 History of osteoporosis. Plan: The patient was seen and evaluated by Dr. Fletcher Chest x-ray and labs reviewed Chest tube remains in place to wall suction, no leak Increase her activity as tolerated Follow-up chest x-ray in a.m. Home once cleared by CT services We will continue to follow I, the cosigning physician, performed a history & physical examination of the patient. Lungs sounds with basilar crackles. Maintaining good O2 saturations in the 90s on room air. I discussed the assessment and plan of care with my nurse practitioner, Nay Lopez. I attest to the above note as dictated by her.
[2021-03-22] MEDS: QUEtiapine 25 MG TAB PO SCH (20:15)
[2021-03-23] MEDS: KETOROLAC 15 MG/ML 1 ML VIAL IVP SCH ×2 (05:59→11:40)
[2021-03-23] MEDS: THIAMINE 100 MG TAB PO SCH ×2 (05:59→16:58)
--- NOTE | 2021-03-23 07:03 | XR ---
EXAMINATION TYPE: XR chest 2V DATE OF EXAM: 03/23/2021 COMPARISON: 03/22/2021 HISTORY: Status post right upper lobe lobectomy TECHNIQUE: Frontal and lateral views of the chest are obtained. FINDINGS: There is a right chest tube which is projecting over the right upper lung zone. There is n o pneumothorax. The lungs are clear of consolidative or masslike opacity. There are small bilateral pleural effusions. Heart size is normal. There is been interval insertion o f a mediastinal tube. The osseous structures are intact. IMPRESSION: There appears to be a mediastinal chest tube which was not present on the prior study. T here is no change in the right-sided chest tube and there is no acute lung opacity and no pneumothora x. There are probable small bilateral pleural effusions.
[2021-03-23] MEDS: HEPARIN SODIUM,PORCINE/PF 5,000 UNIT/0.5 ML SYRINGE SQ SCH ×3 (07:53→23:16)
[2021-03-23] MEDS: IPRATROPIUM-ALBUTEROL 3 ML NEB IH SCH ×4 (08:00→19:53)
[2021-03-23] MEDS: ATORVASTATIN 40 MG TAB PO SCH (08:00)
[2021-03-23] MEDS: traMADol 50 MG TAB PO SCH (08:00)
[2021-03-23] MEDS: lisinopriL 10 MG TAB PO SCH (08:00)
[2021-03-23] MEDS: GABAPENTIN 100 MG CAP PO SCH ×4 (08:00→21:12)
[2021-03-23] MEDS: MULTIVITAMINS, THERA 1 EACH TAB PO SCH (08:01)
[2021-03-23 08:47] LABS: HCT 35.1 % (34.0-46.0); HGB 11.9 gm/dL (11.4-16.0); MCH 31.8 pg (25.0-35.0); MCHC 33.8 g/dL (31.0-37.0); MCV 94.1 fL (80.0-100.0); Mean Platelet Volume 7.4; Platelet Count 264 k/uL (150-450); RBC 3.73 m/uL (3.80-5.40); RDW 13.3 % (11.5-15.5); WBC 7.5 k/uL (3.8-10.6)
[2021-03-23 09:12] LABS: African American GFR (CKD) >90 (>60 ml/min/1.73 sqM); Anion Gap 6 mmol/L; Blood Urea Nitrogen 6 mg/dL (7-17); Carbon Dioxide 24 mmol/L (22-30); Chloride 100 mmol/L (98-107); Glucose 88 mg/dL (74-99); Non-African American GFR(CKD) >90 (>60 ml/min/1.73 sqM); Potassium 4.5 mmol/L (3.5-5.1); Sodium 130 mmol/L (137-145)
--- NOTE | 2021-03-23 09:37 | P.PN ---
Subjective Progress Note Date: 03/23/21 Principal diagnosis: Stage I adenocarcinoma right upper lobe. Previous medical history of hypertension, hyperlipidemia, brain aneurysm status post clipping, recent cessation of heavy tobacco dependence, daily marijuana use, daily EtOH use without history of withdrawal, and family history of cancer POD #3 robotic assisted thoracoscopic right upper lobectomy with mediastinal ly mph node dissection The patient was seen and examined this morning with Dr. Humphrey on the cardiac st epdown unit. She is in no acute distress, ambulating around room without difficulty. States pain is controlled on current medication regimen, denies shortness of breath. She remains on room air and oxygenating well. Right pleural chest tube remains to water seal with no air leak present this morning. Patient had an uneventful night. Chest x-ray reviewed this morning, stable. No other new concerns. Objective - Vital Signs Vital signs: Vital Signs Temp 98.2 F 03/22/21 20:00 Pulse 80 03/23/21 08:15 Resp 18 03/23/21 04:00 BP 162/70 03/23/21 04:00 Pulse Ox 93 L 03/23/21 04:00 Intake & Output 03/22/21 03/23/21 03/23/21 18:59 06:59 18:59 Intake Total 480 Balance 480 Weight 53.1 kg Intake: Oral 480 Other: Voiding Method Toilet # Voids 4 1 - Exam CONSTITUTIONAL: Appears comfortable, cooperative, no acute distress RESPIRATORY: Lungs sounds diminished bilaterally. Respirations even, nonlabored. Currently on room air with oxygen saturation 93%. Strong cough. Able to achieve 1250 mL on her incentive spirometry CARDIOVASCULAR: S1, S2 present. Regular rate and rhythm, sinus rhythm on telemetry. Palpable peripheral pulses bilaterally. No edema present. No calf pain or tenderness noted. SCDs present. GASTROINTESTINAL: Abdomen soft, nontender, nondistended. Active bowel sounds present 4 quadrants. Tolerating diet. GENITOURINARY: Continues to void INTEGUMENTARY: Skin is warm and dry with evidence of good perfusion. Thoracic incisions well approximated and covered with dry bandages. NEUROLOGIC: Cranial nerves II through XII intact MUSKULOSKELETAL: Able to move all extremities, strength equal bilaterally, gait normal PSYCHIATRIC: Alert and oriented to person place and time, appropriate affect, intact judgment and insight INVASIVE LINES AND TUBES: Right pleural chest tube present to water seal, no air leak present, less than 300 mL serosanguineous drainage in the last 24 hours. - Allied health notes Allied health notes reviewed: nursing - Labs CBC & Chem 7: 03/23/21 07:48 03/23/21 07:48 Labs: Abnormal Lab Results - Last 24 Hours (Table) 03/23/21 03/23/21 Range/Units 07:48 07:48 RBC 3.73 L (3.80-5.40) m/uL Sodium 130 L (137-145) mmol/L BUN 6 L (7-17) mg/dL - Imaging and Cardiology Chest x-ray: report reviewed, image reviewed Assessment and Plan Assessment: 1. Stage I adenocarcinoma right upper lobe, status post robotic-assisted thorac oscopic right upper lobectomy with mediastinal lymph node dissection, pathology pending 2. History of hypertension, treated 3. History of hyperlipidemia, treated 4. History of brain aneurysm status post clipping 5. Recent cessation of heavy tobacco dependence, previous 2 pack a day smoker for 40 years 6. Daily marijuana use 7. Daily EtOH use without history of withdrawal, 3-5 beers daily 8. Family history of cancer Plan: 1. Right pleural chest tube discontinued without incident. Pathology pending 2. Encourage incentive spirometry 10 times every hour while awake. Bronchodilators per pulmonology 3. Increase activity, ambulate as tolerated 4. Encourage continued smoking cessation 5. Repeat CXR in AM 6. CIWA protocol 7. Pain control with current medication regimen 8. More recommendations to follow, likely will discharge to home in the morning if CXR remains stable Time with Patient: Greater than 30
--- NOTE | 2021-03-23 12:49 | P.PN ---
Subjective Progress Note Date: 03/23/21 Principal diagnosis: Lung mass, status post right upper lobectomy 70-year-old female who underwent a robotically-assisted right upper lobectomy with mediastinal lymph node dissection for early stage adenocarcinoma of the right upper lobe. The surgery was done by Dr. Mendez. The patient was sent by Dr. Porter. Electromagnetic navigational bronchoscopy was performed by my pa mahesh, in January. Currently, the patient's resting comfortably. Room air saturation is 96%. On 3 L she is 99%. Her only complaint today was the compression stockings that she is wearing. I explained to her that they help prevent deep venous thrombosis. She does understand. She denies any sign ificant pain at this time. She also denies any shortness of breath, cough, wheezing, or phlegm production. She has a history of hyperlipidemia, and hypertension. She also has a history of mood disorder, and osteoporosis. Up until recently, she was a active smoker. Labs include a white count of 16.8 hemoglobin 14.5, hematocrit 43.4, and platelet count 359,000. Sodium 134. Potassium 4.5, chlorides 103, CO2 25, anion gap 6, BUN 7, creatinine 0.68. Coronavirus testing was negative. Chest x-ray shows postsurgical changes within the right chest, right-sided chest tube, and no pneumothorax. The patient is seen today March 21 2021 in follow-up on the selective care unit. She is currently sitting up in bed. Awake and alert in no acute distress. She denies any worsening shortness of breath, cough or congestion. Her pain is well controlled. She is maintaining good O2 saturations in the upper 90s on room air. Chest tube remains in place. Currently to waterseal suction. Minimal air leak noted. His x-ray continues to reassess some postoperative atelectasis. No sizable pneumothorax. If she continues to work well with the incentive spirometer. Up with assistance. He comes in 0.9. Hemoglobin 12.4. She remains on bronchodilators. Heparin for DVT prophylaxis. CIWA protocol in place. The patient is seen today 03/22/2021 and follow-up on the selective care unit. She is currently sitting up in bed. Awake and alert in no acute distress. No worsening shortness of breath, cough or congestion. Maintaining good O2 saturations in the mid 90s on room air. She's afebrile. White count 9.3. Hemoglobin 12.4. Sodium 129. Potassium 4.0. Creatinine 0.64. On the CIWA protocol. No Ativan required. Pathology results pending. Chest x-ray reveals partial right-sided lobectomy changes seen. Right perihilar opacity noted. Right-sided chest tube in place without evidence of pneumothorax. Chest tube remains to continuous wall suction with no air leak noted. The patient is seen today 03/23/2021 in follow-up on the selective care unit. She is up ambulating in the room. Awake alert no acute distress. Her chest tube was removed today by CT services. His x-ray reveals no acute lung opacity and no pneumothorax. Small bilateral effusions. She is working well with the incentive spirometer. White count 7.5. Hemoglobin 11.9. Sodium 130. Potassium 4.5. Creatinine 0.62. She remains on bronchodilators. Heparin for DVT prophylaxis. Objective - Vital Signs Vital signs: Vital Signs Temp 98.2 F 03/22/21 20:00 Pulse 80 03/23/21 11:50 Resp 18 03/23/21 04:00 BP 162/70 03/23/21 04:00 Pulse Ox 93 L 03/23/21 04:00 Intake & Output 03/22/21 03/23/21 03/23/21 18:59 06:59 18:59 Intake Total 480 240 Balance 480 240 Weight 53.1 kg Intake: Oral 480 240 Other: Voiding Method Toilet # Voids 4 1 - Exam GENERAL EXAM: Alert, active, pleasant 70-year-old female patient, on room air, comfortable in no apparent distress. HEAD: Normocephalic. EYES: Normal reaction of pupils, equal size. NOSE: Clear with pink turbinates. THROAT: No erythema or exudates. NECK: No masses, no JVD. CHEST: Right-sided chest tube discontinued this morning. Dressing intact. LUNGS: Equal air entry with basilar crackles. CVS: S1 and S2 normal with no audible murmur, regular rhythm. ABDOMEN: No hepatosplenomegaly, normal bowel sounds, no guarding or rigidity. SPINE: No scoliosis or deformity SKIN: No rashes CENTRAL NERVOUS SYSTEM: No focal deficits, tone is normal in all 4 extremities. EXTREMITIES: There is no peripheral edema. No clubbing, no cyanosis. Peripheral pulses are intact. - Labs CBC & Chem 7: 03/23/21 07:48 03/23/21 07:48 Labs: Abnormal Lab Results - Last 24 Hours (Table) 03/23/21 03/23/21 Range/Units 07:48 07:48 RBC 3.73 L (3.80-5.40) m/uL Sodium 130 L (137-145) mmol/L BUN 6 L (7-17) mg/dL Assessment and Plan Assessment: 1 Early stage adenocarcinoma of the lung. Status post robotically assisted right upper lobectomy and mediastinal lymph node dissection, Post-op day #3 2 History of significant previous tobacco history. 3 History of hyperlipidemia. 4 History of hypertension. 5 History of mood disorder. 6 History of osteoporosis. Plan: The patient was seen and evaluated by Dr. Fletcher Chest x-ray and labs reviewed Chest tube removed this morning per CT services Increase her activity as tolerated Follow-up chest x-ray in a.m. Probable home in a.m. We will continue to follow I, the cosigning physician, performed a history & physical examination of the patient. Lungs sounds with basilar crackles. Maintaining good O2 saturations in the 90s on room air. I discussed the assessment and plan of care with my nurse practitioner, Nay Lopez. I attest to the above note as dictated by her.
[2021-03-23] MEDS: ACETAMINOPHEN TAB 500 MG TAB PO PRN (14:44)
[2021-03-23] MEDS ORDERED: IBUPROFEN 600 MG TAB PO PRN (15:36)
[2021-03-23] MEDS: QUEtiapine 25 MG TAB PO SCH (21:12)
[2021-03-23 21:32] LABS: Magnesium 1.9 mg/dL (1.6-2.3); Potassium 3.8 mmol/L (3.5-5.1)
[2021-03-23] MEDS ORDERED: MAGNESIUM OXIDE 400 MG TAB PO STA (22:47)
[2021-03-24] MEDS ORDERED: POTASSIUM CHLORIDE ER 20 MEQ TAB.ER PO STA (00:06)
[2021-03-24 04:45] VITALS: RESP 18
[2021-03-24] MEDS: THIAMINE 100 MG TAB PO SCH (06:33)
--- NOTE | 2021-03-24 07:39 | P.PN ---
Subjective Progress Note Date: 03/24/21 Principal diagnosis: Stage I adenocarcinoma right upper lobe. Previous medical history of hypertension, hyperlipidemia, brain aneurysm status post clipping, recent cessation of heavy tobacco dependence, daily marijuana use, daily EtOH use without history of withdrawal, and family history of cancer POD #4 robotic assisted thoracoscopic right upper lobectomy with mediastinal ly mph node dissection The patient was seen and examined this morning on the cardiac stepdown unit. S he is in no acute distress. States pain is controlled on current medication regimen, denies shortness of breath. She remains on room air and oxygenating well. Right pleural chest tube discontinued yesterday, repeat CXR stable. She did have an episode of atrial tach last night which resolved without treatment, K and Mg were replaced with no further issues. She was asymptomatic at the time. Anticipate DC today Objective - Vital Signs Vital signs: Vital Signs Temp 97.8 F 03/24/21 03:15 Pulse 82 03/24/21 03:15 Resp 18 03/24/21 03:15 BP 154/79 03/24/21 03:15 Pulse Ox 97 03/24/21 03:15 Intake & Output 03/23/21 03/24/21 03/24/21 18:59 06:59 18:59 Intake Total 660 Balance 660 Weight 50.4 kg Intake: Oral 660 Other: Voiding Method Toilet # Voids 2 1 - Exam CONSTITUTIONAL: Appears comfortable, cooperative, no acute distress RESPIRATORY: Lungs sounds diminished bilaterally. Respirations even, nonlabored. Currently on room air with oxygen saturation 97%. Strong cough. Able to achieve 1000 mL on her incentive spirometry CARDIOVASCULAR: S1, S2 present. Regular rate and rhythm, sinus rhythm on telemetry. Palpable peripheral pulses bilaterally. No edema present. No calf pain or tenderness noted. SCDs present. GASTROINTESTINAL: Abdomen soft, nontender, nondistended. Active bowel sounds present 4 quadrants. Tolerating diet. GENITOURINARY: Continues to void INTEGUMENTARY: Skin is warm and dry with evidence of good perfusion. Thoracic incisions well approximated NEUROLOGIC: Cranial nerves II through XII intact MUSKULOSKELETAL: Able to move all extremities, strength equal bilaterally, gait normal PSYCHIATRIC: Alert and oriented to person place and time, appropriate affect, intact judgment and insight - Allied health notes Allied health notes reviewed: nursing - Labs CBC & Chem 7: 03/24/21 07:15 03/24/21 06:55 Labs: Abnormal Lab Results - Last 24 Hours (Table) 03/23/21 03/23/21 Range/Units 07:48 07:48 RBC 3.73 L (3.80-5.40) m/uL Sodium 130 L (137-145) mmol/L BUN 6 L (7-17) mg/dL - Imaging and Cardiology Chest x-ray: image reviewed Assessment and Plan Assessment: 1. Stage I adenocarcinoma right upper lobe, status post robotic-assisted thorac oscopic right upper lobectomy with mediastinal lymph node dissection, pathology pending 2. History of hypertension, treated 3. History of hyperlipidemia, treated 4. History of brain aneurysm status post clipping 5. Recent cessation of heavy tobacco dependence, previous 2 pack a day smoker for 40 years 6. Daily marijuana use 7. Daily EtOH use without history of withdrawal, 3-5 beers daily 8. Family history of cancer Plan: 1. Pathology still pending 2. Encourage incentive spirometry 10 times every hour while awake. Bronchodilators per pulmonology 3. Increase activity, ambulate as tolerated 4. Encourage continued smoking cessation 5. Repeat CXR this AM reviewed 6. CIWA protocol 7. Pain control with current medication regimen 8. Will discharge to home today Time with Patient: Greater than 30
[2021-03-24 07:52] LABS: HCT 34.8 % (34.0-46.0); HGB 12.1 gm/dL (11.4-16.0); MCH 32.4 pg (25.0-35.0); MCHC 34.9 g/dL (31.0-37.0); MCV 92.9 fL (80.0-100.0); Mean Platelet Volume 6.8; Platelet Count 279 k/uL (150-450); RBC 3.74 m/uL (3.80-5.40); RDW 13.9 % (11.5-15.5); WBC 5.4 k/uL (3.8-10.6)
[2021-03-24 08:03] LABS: African American GFR (CKD) >90 (>60 ml/min/1.73 sqM); Anion Gap 4 mmol/L; Blood Urea Nitrogen 4 mg/dL (7-17); Calcium 9.1 mg/dL (8.4-10.2); Carbon Dioxide 25 mmol/L (22-30); Chloride 104 mmol/L (98-107); Glucose 96 mg/dL (74-99); Magnesium 1.9 mg/dL (1.6-2.3); Non-African American GFR(CKD) >90 (>60 ml/min/1.73 sqM); Potassium 4.7 mmol/L (3.5-5.1); Sodium 133 mmol/L (137-145)
[2021-03-24] MEDS: IPRATROPIUM-ALBUTEROL 3 ML NEB IH SCH ×2 (08:05→11:40)
[2021-03-24] MEDS ORDERED: MAGNESIUM OXIDE 400 MG TAB PO STA (08:13)
--- NOTE | 2021-03-24 08:55 | XR ---
EXAMINATION TYPE: XR chest 2V DATE OF EXAM: 03/24/2021 COMPARISON: Chest x-ray 6 03/23/2021 HISTORY: Post lobectomy, chest tube removal TECHNIQUE: Frontal and lateral views of the chest are obtained. FINDINGS: There has been interval removal of the right-sided chest tube. No evident pneumothorax. Th ere is minimal blunting of the left costophrenic angle as on prior exam. Bandlike area of increased a ttenuation persists in the right midlung." Perihilar increased attenuation shows a similar appearance on the right, there is volume loss in the right hemithorax. IMPRESSION: No evident complication status post chest tube removal. Postop changes.
[2021-03-24] MEDS: HEPARIN SODIUM,PORCINE/PF 5,000 UNIT/0.5 ML SYRINGE SQ SCH (09:10)
[2021-03-24] MEDS: ATORVASTATIN 40 MG TAB PO SCH (09:10)
[2021-03-24] MEDS: GABAPENTIN 100 MG CAP PO SCH (09:10)
[2021-03-24] MEDS: lisinopriL 10 MG TAB PO SCH (09:10)
[2021-03-24] MEDS: MULTIVITAMINS, THERA 1 EACH TAB PO SCH (09:10)
--- NOTE | 2021-03-24 09:39 | P.DS ---
Providers Date of admission: 03/20/21 06:13 Expected date of discharge: 03/24/21 Attending physician: Karl Mendez Consults: 03/20/21 11:32 Consult Physician Routine Consulting Provider: Moreno Fletcher Reason/Comments: post op right upper lobectomy Do you want consulting provider notified?: Yes Primary care physician: Stated None Hospital Course: FINAL DIAGNOSIS: 1. Stage I adenocarcinoma right upper lobe 2. History of hypertension, treated 3. History of hyperlipidemia, treated 4. History of brain aneurysm status post clipping 5. Recent cessation of heavy tobacco dependence 6. Daily marijuana use 7. Daily EtOH use without history of withdrawal 8. Family history of cancer PRINCIPAL PROCEDURE: Robotic assisted thoracoscopic right upper lobectomy with mediastinal lymph node dissection HISTORY OF PRESENT ILLNESS: This is an 70-year-old female active smoker who presented to cardiothoracic surgery office for evaluation of an enlarging right pulmonary mass. Initial CT was in June and demonstrated a 1.3 x 1.7 cm groundglass density in the right upper lobe. The CT also noted a 4 mm groundglass density in the left lower lobe. Serial CT scans were performed, and follow-up computed tomography scan was performed December 06 which demonstrated marked increase in size of right upper lobe lesion with no change in the left lower lobe nodule. The patient was sent for PET scan, which was markedly positive for uptake in the right upper lobe mass. The patient was referred to Dr. Mendez from cardiothoracic surgery. Options were discussed including the preference for preoperative diagnosis prior to proceeding to lobectomy due to findings of multiple irregularities on CT scan. The patient underwent bronchoscopic biopsy which was positive for pulmonary adenocarcinoma. Subsequently she was recommended to undergo robotic-assisted thoracoscopic right upper lobectomy. The usual perioperative course was discussed in detail with the patient and her family, all risks and benefits were explained, all questions were answered, and consent was obtained to proceed with surgery. The patient was scheduled for surgery at the earliest possible date. She was strongly encouraged to quit smoking. HOSPITAL COURSE: The patient was brought to the hospital on 03/20/2021, taken to the preoperative area, prepared in the usual fashion, and subsequently taken to the operating room where Dr. Mendez performed robotic assisted thoracoscopic right upper lobectomy with mediastinal lymph node dissection. Upon completion of surgery the patient was extubated and transferred to the recovery room where she was recovered and monitored hemodynamically. She was eventually admitted to the cardiac stepdown unit for further monitoring. On postop day #1 she had no air leak present in her chest tube and it was placed to waterseal. She continued to have no air leak and decreased drainage and the chest tube was discontinued uneventfully on postop day #3. Follow-up chest x-ray was stable. Her oxygen was titrated down, she was tolerating oral diet, her pain was controlled, and she was ready to be discharged to home on postoperative day #4 with surgical pathology still pending. She received written and verbal instruction regarding her medications, activity restrictions, signs and symptoms requiring physician notification, and follow-up appointments. Patient Condition at Discharge: Stable Plan - Discharge Summary Discharge Rx Participant: No New Discharge Prescriptions: New Thiamine [Vitamin B-1] 100 mg PO BID-W/MEALS tab Ibuprofen [Motrin] 600 mg PO QID PRN tab PRN Reason: Moderate-Severe Pain Control Multivitamins, Thera [Multivitamin (formulary)] 1 each PO DAILY tab Acetaminophen Tab [Tylenol] 1,000 mg PO Q6HR PRN tab PRN Reason: Fever and/ or mild Pain Continue QUEtiapine FUMARATE 10 mg PO HS Gabapentin [Neurontin] 100 mg PO QID Lisinopril [Zestril] 10 mg PO QAM Rosuvastatin [Crestor] 10 mg PO DAILY Discontinued Naproxen Sodium [Aleve] 220 mg PO DAILY Discharge Medication List Gabapentin [Neurontin] 100 mg PO QID 01/23/21 [History] Lisinopril [Zestril] 10 mg PO QAM 01/23/21 [History] QUEtiapine FUMARATE 10 mg PO HS 01/23/21 [History] Rosuvastatin [Crestor] 10 mg PO DAILY 01/23/21 [History] Acetaminophen Tab [Tylenol] 1,000 mg PO Q6HR PRN tab 03/24/21 [Rx] Ibuprofen [Motrin] 600 mg PO QID PRN tab 03/24/21 [Rx] Multivitamins, Thera [Multivitamin (formulary)] 1 each PO DAILY tab 03/24/21 [Rx] Thiamine [Vitamin B-1] 100 mg PO BID-W/MEALS tab 03/24/21 [Rx] Follow up Appointment(s)/Referral(s): Javier Porter MD [STAFF PHYSICIAN] - 04/07/21 9:15 am Phylicia Goldman DO [REFERRING] - As Needed Karl Mendez MD [STAFF PHYSICIAN] - 2 Weeks (Office will call with appointment) Activity/Diet/Wound Care/Special Instructions: DISCHARGE INSTRUCTIONS: 1. No driving for 2 weeks, or until physician gives their ok. 2. No lifting, pushing, or pulling more than 10 pounds for 2 weeks. The physician will advise of any restriction changes. 3. Continue pain control per as needed orders. Alternate acetaminophen (Tylenol) and ibuprofen (Motrin/Advil) for pain. 4. Continue with incentive spirometry and splinting until otherwise directed by the physician. 5. Leave chest tube dressing for 48 hours. After that, remove all dressings a nd shower daily. 6. Routine incision care. No powders, lotions, ointments on incisions. 7. Please call surgeon/TECHNICAL FELLOW for temp greater than 101 F or purulent drainage from incisions. 8. Smoking cessation counseling and program information provided. Discharge Disposition: HOME SELF-CARE
--- NOTE | 2021-03-24 10:42 | P.PN ---
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 The surgery was done by Dr. Mendez. The patient was sent by Dr. Porter. Electromagnetic navigational bronchoscopy was performed by my pa mahesh, in January. Currently, the patient's resting comfortably. Room air saturation is 96%. On 3 L she is 99%. Her only complaint today was the compression stockings that she is wearing. I explained to her that they help prevent deep venous thrombosis. She does understand. She denies any sign ificant pain at this time. She also denies any shortness of breath, cough, wheezing, or phlegm production. She has a history of hyperlipidemia, and hypertension. She also has a history of mood disorder, and osteoporosis. Up until recently, she was a active smoker. Labs include a white count of 16.8 hemoglobin 14.5, hematocrit 43.4, and platelet count 359,000. Sodium 134. Potassium 4.5, chlorides 103, CO2 25, anion gap 6, BUN 7, creatinine 0.68. Coronavirus testing was negative. Chest x-ray shows postsurgical changes within the right chest, right-sided chest tube, and no pneumothorax. The patient is seen today March 21 2021 in follow-up on the selective care unit. She is currently sitting up in bed. Awake and alert in no acute distress. She denies any worsening shortness of breath, cough or congestion. Her pain is well controlled. She is maintaining good O2 saturations in the upper 90s on room air. Chest tube remains in place. Currently to waterseal suction. Minimal air leak noted. His x-ray continues to reassess some postoperative atelectasis. No sizable pneumothorax. If she continues to work well with the incentive spirometer. Up with assistance. He comes in 0.9. Hemoglobin 12.4. She remains on bronchodilators. Heparin for DVT prophylaxis. CIWA protocol in place. The patient is seen today 03/22/2021 and follow-up on the selective care unit. She is currently sitting up in bed. Awake and alert in no acute distress. No worsening shortness of breath, cough or congestion. Maintaining good O2 saturations in the mid 90s on room air. She's afebrile. White count 9.3. Hemoglobin 12.4. Sodium 129. Potassium 4.0. Creatinine 0.64. On the CIWA protocol. No Ativan required. Pathology results pending. Chest x-ray reveals partial right-sided lobectomy changes seen. Right perihilar opacity noted. Right-sided chest tube in place without evidence of pneumothorax. Chest tube remains to continuous wall suction with no air leak noted. The patient is seen today 03/23/2021 in follow-up on the selective care unit. She is up ambulating in the room. Awake alert no acute distress. Her chest tube was removed today by CT services. His x-ray reveals no acute lung opacity and no pneumothorax. Small bilateral effusions. She is working well with the incentive spirometer. White count 7.5. Hemoglobin 11.9. Sodium 130. Potassium 4.5. Creatinine 0.62. She remains on bronchodilators. Heparin for DVT prophylaxis. The patient is seen today 03/24/2021 and follow-up in the selective care unit. She is up ambulating in the room. Awake and alert in no acute distress. Maintaining O2 saturations in the 90s on room air. Chest x-ray revealed no evidence of pneumothorax. Working well with the incentive spirometer. The plan is for discharge to home today. White count 5.4. Hemoglobin 12.1. Objective - Vital Signs Vital signs: Vital Signs Temp 97.8 F 03/24/21 03:15 Pulse 80 03/24/21 08:17 Resp 18 03/24/21 03:15 BP 154/79 03/24/21 03:15 Pulse Ox 97 03/24/21 03:15 Intake & Output 03/23/21 03/24/21 03/24/21 18:59 06:59 18:59 Intake Total 660 Balance 660 Weight 50.4 kg Intake: Oral 660 Other: Voiding Method Toilet # Voids 2 1 - Exam GENERAL EXAM: Alert, active, pleasant 70-year-old female patient, on room air, comfortable in no apparent distress. HEAD: Normocephalic. EYES: Normal reaction of pupils, equal size. NOSE: Clear with pink turbinates. THROAT: No erythema or exudates. NECK: No masses, no JVD. CHEST: Right-sided chest tube discontinued this morning. Dressing intact. LUNGS: Equal air entry with basilar crackles. CVS: S1 and S2 normal with no audible murmur, regular rhythm. ABDOMEN: No hepatosplenomegaly, normal bowel sounds, no guarding or rigidity. SPINE: No scoliosis or deformity SKIN: No rashes CENTRAL NERVOUS SYSTEM: No focal deficits, tone is normal in all 4 extremities. EXTREMITIES: There is no peripheral edema. No clubbing, no cyanosis. Peripheral pulses are intact. - Labs CBC & Chem 7: 03/24/21 07:15 03/24/21 06:55 Labs: Abnormal Lab Results - Last 24 Hours (Table) 03/24/21 03/24/21 Range/Units 06:55 07:15 RBC 3.74 L (3.80-5.40) m/uL Sodium 133 L (137-145) mmol/L BUN 4 L (7-17) mg/dL Assessment and Plan Assessment: 1 Early stage adenocarcinoma of the lung. Status post robotically assisted right upper lobectomy and mediastinal lymph node dissection, Post-op day #3 2 History of significant previous tobacco history. 3 History of hyperlipidemia. 4 History of hypertension. 5 History of mood disorder. 6 History of osteoporosis. Plan: The patient was seen and evaluated by Dr. Hoskins Plan is for discharge to home today Continue to work with the incentive spirometer Follow up with Dr. Porter in our office in 1-2 weeks' time I, the cosigning physician, performed a history & physical examination of the patient. Lungs sounds with faint basilar crackles. Maintaining good O2 saturations in the 90s on room air. I discussed the assessment and plan of care with my nurse practitioner, Nay Lopez. I attest to the above note as dictated by her.
[2021-03-24 11:10] VITALS: BP 114/68; PULSE 86; TEMP 98
--- NOTE | 2021-03-26 12:16 | CDI ---
Documentation Clarification Form Date: 03/26/2021 11:51:35 AM From: Ilana Boss RN, CCDS Admit Date: 03/20/2021 06:13:00 AM Patient Name: Ally Henry Visit Number: [id number] Discharge Date: 03/24/2021 11:47:00 AM ATTENTION: The Clinical Documentation Specialists (CDI) and [facility] Coding Staff appreciate your assistance in clarifying documentation. Please respond to the clarification below the line at the bottom and electronically sign. The CDI & [facility] Coding staff will review the response and follow-up if needed. Please note: Queries are made part of the Legal Health Record. If you have any questions, please contact the author of this message via ITS. Dr. Nicole Hoskins Postoperative Atelectasis is documented in the Pulmonary progress Notes 03/21- 03/24, and patient had Robotic-assisted thoracoscopic right upper lobectomy with mediastinal lymph node dissection on 03/20. Additional clarification is requested regarding the relationship, if any, that exists between the diagnosis and the procedure. Patients Admitting Diagnosis: Stage I adenocarcinoma right upper lobe Post-Operative Diagnosis: Stage I adenocarcinoma right upper lobe Procedure performed: Robotic-assisted thoracoscopic right upper lobectomy with mediastinal lymph node dissection History/Risk Factors: Lung Ca diagnosed 03/18, Smoker, ETOH, HTN, Brain aneurysm, daily marijuana use Clinical Indicators: 03/21-03/24 Pulmonary progress Note: "His x-ray continues to reassess some postoperative atelectasis. We encourage deep breathing, coughing, and clearing of secretions as well as hourly use of the incentive spirometer." 03/21 Cardiothoracic surgery progress note: "Right pleural chest tube placed to waterseal. We will continue to monitor drainage and air leak. Pathology pending 2.Incentive spirometry ordered, should be encouraged 10 times every hour while awake. Bronchodilators per pulmonology." Treatment: Duoneb INH QID Early Ambulation IS 10x's/Hr. while awake Daily monitoring of CXR What relationship, if any, exists between the diagnosis of Postoperative Atelectasis and the procedure? [ ] Postoperative Atelectasis is a complication of surgical procedure [ Moreno Tinsley septic rightx ] Postoperative Atelectasis is an expected outcome of the surgical procedure [ ] Postoperative Atelectasis is related to patients co-morbid condition(s) of smoking, marijuana use, and ETOH & not a complication of the procedure [ ] Postoperative Atelectasis is clinically insignificant and has been ruled out [ ] Other please specify ____ [ ] Unable to determine (Template Last Revised: August 2020) MTDD
--- NOTE | 2021-03-27 08:18 | CDI ---
Documentation Clarification Form Date: 03/26/2021 11:51:00 AM From: Ilana Boss RN, CCDS Admit Date: 03/20/2021 06:13:00 AM Patient Name: Ally Henry Visit Number: [id number] Discharge Date: 03/24/2021 11:47:00 AM ATTENTION: The Clinical Documentation Specialists (CDI) and [facility] Coding Staff appreciate your assistance in clarifying documentation. Please respond to the clarification below the line at the bottom and electronically sign. The CDI & [facility] Coding staff will review the response and follow-up if needed. Please note: Queries are made part of the Legal Health Record. If you have any questions, please contact the author of this message via ITS. Dr. Nicole Hoskins Postoperative Atelectasis is documented in the Pulmonary progress Notes 03/21- 03/24, and patient had Robotic-assisted thoracoscopic right upper lobectomy with mediastinal lymph node dissection on 03/20. Additional clarification is requested regarding the relationship, if any, that exists between the diagnosis and the procedure. Patients Admitting Diagnosis: Stage I adenocarcinoma right upper lobe Post-Operative Diagnosis: Stage I adenocarcinoma right upper lobe Procedure performed: Robotic-assisted thoracoscopic right upper lobectomy with mediastinal lymph node dissection History/Risk Factors: Lung Ca diagnosed 03/18, Smoker, ETOH, HTN, Brain aneurysm, daily marijuana use Clinical Indicators: 03/21-03/24 Pulmonary progress Note: "His x-ray continues to reassess some postoperative atelectasis. We encourage deep breathing, coughing, and clearing of secretions as well as hourly use of the incentive spirometer." 03/21 Cardiothoracic surgery progress note: "Right pleural chest tube placed to waterseal. We will continue to monitor drainage and air leak. Pathology pending 2.Incentive spirometry ordered, should be encouraged 10 times every hour while awake. Bronchodilators per pulmonology." Treatment: Duoneb INH QID Early Ambulation IS 10x's/Hr. while awake Daily monitoring of CXR What relationship, if any, exists between the diagnosis of Postoperative Atelectasis and the procedure? [ ] Postoperative Atelectasis is a complication of surgical procedure [ x ] Postoperative Atelectasis is an expected outcome of the surgical procedure [ ] Postoperative Atelectasis is related to patients co-morbid condition(s) of smoking, marijuana use, and ETOH & not a complication of the procedure [ ] Postoperative Atelectasis is clinically insignificant and has been ruled out [ ] Other please specify ____ [ ] Unable to determine (Template Last Revised: August 2020) MTDD
== END 2021-03-24 11:47 | disposition home or self-care (01) | DRG 164 ==
LOC: 2ORMAIN 06:13 → 3SCARD 11:29
PROVIDERS: ADMIT Thoracic Surgery (Cardiothoracic Vascular Surgery); ATTEND Thoracic Surgery (Cardiothoracic Vascular Surgery)
PROC: 0BTC4ZZ Resection of Right Upper Lung Lobe, Percutaneous Endoscopic Approach (ICD-10-PCS; principal; 2021-03-20 07:30)
PROC: 07T74ZZ Resection of Thorax Lymphatic, Percutaneous Endoscopic Approach (ICD-10-PCS; principal; 2021-03-20 07:30)
PROC: 8E0W4CZ Robotic Assisted Procedure of Trunk Region, Percutaneous Endoscopic Approach (ICD-10-PCS; principal; 2021-03-20 07:30)
DX: C34.11 Malignant neoplasm of upper lobe, right bronchus or lung (principal); J98.11 Atelectasis; E78.5 Hyperlipidemia, unspecified; J44.9 Chronic obstructive pulmonary disease, unspecified; F39 Unspecified mood [affective] disorder; Z20.822 Contact with and (suspected) exposure to COVID-19; I10 Essential (primary) hypertension; M81.0 Age-related osteoporosis without current pathological fracture; I25.10 Atherosclerotic heart disease of native coronary artery without angina pectoris; F17.210 Nicotine dependence, cigarettes, uncomplicated; Z71.6 Tobacco abuse counseling; Z79.1 Long term (current) use of non-steroidal anti-inflammatories (NSAID); Z79.899 Other long term (current) drug therapy; Z86.79 Personal history of other diseases of the circulatory system; Z98.818 Other dental procedure status; Z72.89 Other problems related to lifestyle; Z98.890 Other specified postprocedural states; Z80.1 Family history of malignant neoplasm of trachea, bronchus and lung; Z82.49 Family history of ischemic heart disease and other diseases of the circulatory system
CPT/HCPCS: 36415; 64999; 71045; 71046; 80048; 83735; 84132; 85025; 85027; 85730; 86850; 86900; 86901; 87077; 87086; 87186; 87635; 88305; 88309; 88312; 88331; 94640; 94760